=== PATIENT | female | born 1950 | race Caucasian/White ===

== ENCOUNTER 2024-12-12 13:44 | Emergency (ER) | payer MEDICARE, BC ==
[~2024-12-12] VITALS: Ht 157.5 cm; Wt 63.5 kg
[2024-12-12] MEDS ORDERED: ROSU5TAB13 (15:23)
[2024-12-12] MEDS ORDERED: OLAN2.5T27 PO (15:23)
[2024-12-12] MEDS ORDERED: TUCA150T (15:23)
[2024-12-12] MEDS ORDERED: LOSA25TA27 (15:23)
[2024-12-12] MEDS ORDERED: LEVO100T PO (15:23)
[2024-12-12] MEDS ORDERED: HYDR25TA86 (15:23)
[2024-12-12] MEDS ORDERED: ERGO500040 PO (15:23)
[2024-12-12 15:30] VITALS: BP 136/59; O2SAT 98
== END 2024-12-12 15:30 | disposition home or self-care (01) ==
LOC: ER 14:06
DX: I11.9 Hypertensive heart disease without heart failure (principal); E78.5 Hyperlipidemia, unspecified
CPT/HCPCS: A4606; A4663